=== PATIENT | male | born 1990 | race Caucasian/White ===

== ENCOUNTER 2021-03-27 03:10 | Emergency (ER) | payer BC, SELFPAY ==
[2021-03-27 03:15] VITALS: BP 134/82; PULSE 68; RESP 16; TEMP 35.9; O2SAT 100
[2021-03-27 03:21] VITALS: BP 134/76; PULSE 62; RESP 14; O2SAT 96
[2021-03-27 03:53] LABS: Add Urine Microscopic? NO; Appearance Urine Clear (Clear); Bilirubin Urine Negative (Negative); Blood Urine Negative (Negative); Color Urine Yellow (Yellow); Glucose Urine UA Negative (Negative); Ketones Urine Negative (Negative); Leukocyte Esterase Ur Negative LEU/UL (Negative); Nitrate Urine Negative (Negative); Protein Urine Negative (Negative); Specific Grav Ur 1.021 (1.001-1.035); Urobilinogen Urine Negative mg/dL (<2.0)
--- NOTE | 2021-03-27 04:01 | ED.SKABFB ---
HPI - Skin/Abscess/Foreign Bdy General Chief complaint: Skin/Abscess/Foreign Body Stated complaint: rash all over body Time Seen by Provider: 03/27/21 03:16 Source: patient Mode of arrival: ambulatory Limitations: no limitations History of Present Illness HPI narrative: This is a 30 year old male who presents for evaluation of a rash. He reports he has been having intermittent rash all over his body for 2 years. Most recently he developed rash in flexor surface of his right arm that has been present for 2 weeks. Over the past 2 days he has noticed red itching rash to his penis. He denies penile discharge, dysuria, lymph node swelling. He also denies new exposures. This rash is itching but denies pain or discharge. He has not been evaluated for this symptoms. He states he applied some over the counter hydrocortisone cream tonight. Related Data Home Medications Medication Instructions Recorded Confirmed omeprazole 20 mg PO DAILY 03/27/21 Allergies Allergy/AdvReac Type Severity Reaction Status Date / Time No Known Allergies Allergy Mild Verified 03/27/21 03:17 Review of Systems Review of Systems: All systems reviewed & are unremarkable except as noted in HPI and below PMFSH Past Medical History Medical History (Updated 03/28/21 @ 00:00 by Shirley Bass) Patient denies medical problems Social History Social History (Updated 03/27/21 @ 04:05 by Milka Jones MD) Smoking status: Never smoker Alcohol intake: current Gender identity (if verbalized by the patient): Male Sexual Orientation (if Verbalized by the Patient): Straight or Heterosexual Exam Const: General: no acute distress and alert Orientation/consciousness: patient oriented x3 Eyes: EOM: EOMs intact bilaterally Resp: Effort & Inspection: normal respiratory effort GI: GI Palp: Yes Soft to palpation and No Tenderness to palpation present (GI) : Penis: Yes circumcised Other: no inguinal lymphadenopathy. red papular rash to glans of penis, no swelling, not in clusters, no ulcerations. 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 Date: 03/27/21 Time: 04:08 Vital Signs Vital signs: Vital Signs Temperature 96.7 F L 03/27/21 03:15 Pulse Rate 68 03/27/21 03:15 Respiratory Rate 16 03/27/21 03:15 Blood Pressure 134/82 03/27/21 03:15 Pulse Oximetry 100 03/27/21 03:15 Temperature 96.7 F L 03/27/21 03:15 Pulse Rate 62 03/27/21 04:49 Respiratory Rate 16 03/27/21 04:49 Blood Pressure 148/73 H 03/27/21 04:49 Pulse Oximetry 98 03/27/21 04:49 MDM - Skin/Abscess/Foreign Bdy Lab Data Labs: Lab Results 03/27/21 03/27/21 Range/Units 03:44 04:29 Urine Color Yellow (Yellow) Urine Appearance Clear (Clear) Urine pH 5.0 (5.0-9.0) Ur Specific [place] 1.021 (1.001-1.035) Urine Protein Negative (Negative) mg/dL Urine Glucose (UA) Negative (Negative) mg/dL Urine Ketones Negative (Negative) mg/dL Ur Blood (Man) Negative (Negative) Urine Nitrate Negative (Negative) Urine Bilirubin Negative (Negative) Urine Urobilinogen Negative (<2.0) mg/dL Leukocyte Esterase Rfl Negative (Negative) [place]/UL C.trachomatis RNA (TMA) Pending N.gonorrhoeae RNA (TMA) Pending Discharge Plan Discharge Clinical Impression: Eczema, Lesion of penis Patient Disposition: Home, Self-Care Condition: Stable Instructions: Antibiotic Form, Eczema (ED) Additional Instructions: Today you were evaluated for a jessee
[2021-03-27] MEDS: FLUCONAZOLE 150 MG TABLET PO (04:30)
[2021-03-27] MEDS: HYDROCORTISONE 2.5% CREAM 30 GM TUBE 1 APPLIC TOPICAL (04:45)
[2021-03-27 04:49] VITALS: BP 148/73; PULSE 62; RESP 16; O2SAT 98
== END 2021-03-27 04:49 | disposition home or self-care (01) ==
PROVIDERS: Emergency Provider General Practice; PCP Family Medicine Adolescent Medicine
DX: L30.9 Dermatitis, unspecified (principal); N48.89 Other specified disorders of penis
CPT/HCPCS: 81003; 87491; 87591; 99283; A9270

== ENCOUNTER 2024-01-30 01:46 | Day surgery (SDC) | payer BC, SELFPAY ==
[2024-01-28 10:13] VITALS: BMI 34.4
--- NOTE | 2024-01-28 10:21 | PC.NURSE ---
Report to the Outpatient Waiting Room, entrance under the green pavilion located off [facility], at time _1300 on date _01/30/24_. Planned Procedure Time: ___1500_. Time changes happen often and if your time is changed the preop area will call you the afternoon before. - You and your visitor will be asked to self-screen and do not enter if you have any COVID symptoms. - A mask is optional within the hospital at this time. Patients may have clear liquids (water, carbonated beverages, clear teas, apple juice) until 3 hours prior to surgery with a maximum of 20 ounces. - No food from midnight until time of surgery - Infants may have breast milk until 4 hours before surgery, formula 6 hours prior to surgery. - Children will be allowed to drink immediately following surgery. If applicable, please bring a bottle or sippy cup to assist with drinking. Juice, water, soda, and popsicles are readily available. For infants on formula, please bring formula the day of surgery. Pacifiers are allowed. Take the following medications with a SIP of water the morning of surgery: NONE DO NOT STOP ANY OF YOUR OTHER PRESCRIPTION MEDICATIONS PRIOR TO SURGERY ?EXCEPT THE FOLLOWING Medications to discontinue per physician NONE Date to take last dose Please no make-up, nail greek, hairspray, perfume, deodorant, or body powder the day of surgery. No jewelry (including any body piercings) or valuables the day of surgery, leave them at home. Please take a shower or bath the night before, or the morning of, surgery with an antibacterial soap. Wear comfortable, loose fitting clothing. Children are encouraged to wear pajamas. - Jewelry must be removed prior to entering the operating room. Rings and piercings that are not removed may be cut off. - The hospital will not accept responsibility for valuables. - Please leave all valuables, including medications, at home the day of surgery. If you are going home after surgery, a licensed nascar driver must drive you home. - NO public transportation without another adult if you receive anesthesia. - We recommend that an adult stay with you for 24 hours following discharge. - We also recommend that you do not drive, make important decision, drink alcoholic beverages, or take any drugs that were not prescribed by your health care provider for at least 24 hours after your discharge time. For Pediatric surgeries, we recommend two adults accompany the child home. Follow any additional instructions given to you from your surgeon. If you or anyone in your household have experienced Covid symptoms in the past week, please notify your surgeon or the nurse liaison at the phone number below for possible testing. Telephone instructions given to _PATIENT____and asked if any additional questions and then verbalized understanding. Patient advised to call surgeon office or pre surgery nurse liaison [phone] if any additional questions.
[2024-01-30] VITALS (9 sets, daily range): BP systolic 98–146; BP diastolic 65–87; PULSE 58–73; RESP 14–22; TEMP 36.7–36.8; O2SAT 96–100
--- NOTE | 2024-01-30 08:59 | P.PNAN_ITS ---
Anes - Initial Pre Proc Eval Procedure: Operation Date: 01/30/24 15:00 Proposed Procedures p Bilateral Vasectomy - Dereje Calvillo MD Date/Time: 01/30/24 08:59 Surgeon: Dereje Calvillo MD Pre Op Diagnosis: male sterilization Patient Data Age: 33 Gender: M Height: 1.83 m Weight: 115 kg Allergies Allergy/AdvReac Type Severity Reaction Status Date / Time No Known Allergies Allergy Mild Verified 01/28/24 10:12 Home Medications Medication Instructions Recorded Confirmed Type omeprazole 20 mg tablet,delayed 20 mg PO DAILY 04/18/22 01/28/24 History release Patient hx anesthesia problems: none Family hx anesthesia problems: none Results Review: All pre-operative results and documents have been reviewed as part of the pre- operative evaluation. [facility] Past Medical History Medical History (Updated 01/30/24 @ 09:00 by Kyaw Sepulveda DO) GERD (gastroesophageal reflux disease) Surgical History Surgical History (Updated 04/18/22 @ 10:30 by Nica Pardo MA) History of release of tendon Hx of appendectomy (02/2020) Social History Social History (Updated 04/18/22 @ 10:32 by Nica Pardo MA) Smoking status: Former smoker Tobacco type: e-cigarettes/vaping and smokeless tobacco Smokeless tobacco user: chewing tobacco Smoking end date: 11/19/18 Additional smoking assessment comments: VAP DAILY, CHEW TOBACCO FOR 7 YEARS- DAILY FOR 1 HOUR NOW DOWN FROM ALL DAY Alcohol intake: current Drinks per week: 3 Alcohol use details: A 5th a week Substance use: never Substance use type: marijuana and crack/cocaine Other substance usage details: BLOW Last use: 2 DAYS FOR BLOW, SEVERAL MONTHS FOR MARIJUANA Living arrangements: with family Occupation/Education: occupation Gender identity (if verbalized by the patient): Male Sexual Orientation (if Verbalized by the Patient): Straight or Heterosexual Spiritual care concerns: No Agree to blood products: Yes Anes - Eval Final PreProcedure Day of Procedure 01/30/24 08:59 Patient weight: obese Heart: regular rate and rhythm Lungs: clear to auscultation Airway: Mallampati scale class II Neurological: alert and oriented Last oral intake: >/= 8 hours ASA classification: II Emergent: no Anesthetic plan: proceed Anesthesia type and monitoring: general GIVS and standard monitoring Results Review: All pre-operative results and documents have been reviewed as part of the pre- operative evaluation. Informed Consent: The patient's anesthetic plan and its attendant risks and benefits were discussed with the patient/family/POA. Questions were solicited and answers provided to the satisfaction of the patient/family/POA.
[2024-01-30] MEDS: LACTATED RINGERS 1,000 ML 30 ML IV CONT (14:00)
[2024-01-30] MEDS: ACETAMINOPHEN 500 MG TABLET 1000 MG PO (14:00)
--- NOTE | 2024-01-30 14:03 | WPDHPUPDATE1 ---
History and Physical Update Update Date/Time: 01/30/24 14:03 History and Physical has been reviewed, including an updated exam of the patient. There are NO changes in the patient's condition. Risks, benefits, and alternatives have been discussed and questions answered. Patient agrees to proceed with procedure.
[2024-01-30] MEDS: ceFAZolin 2 GM/D5W 50 ML 2 GM/50 ML BAG IVPB (14:17)
--- NOTE | 2024-01-30 14:48 | W.PM.PROC2 ---
Procedure Note - Detailed Date of Procedure 01/30/24 Pre-op Diagnosis male sterilization Post-op Diagnosis Same Procedure Performed Bilateral vasectomy Surgeon Dereje Calvillo MD Anesthesia General Description of Procedure Informed consent obtained. Patient taken the operating previous give preoperative IV antibiotics. He was prepped and draped normal sterile fashion. The right vas deferens and brought to midline. We then used a non scalpel technique to separate the skin over the vas deferens. A 2cm portion of the vas identified, excised stent the specimen. We then cauterized the ends. Chromic suture was placed at each a fascial interposition was then performed identical procedure the contralateral left side we inspected carefully and there was good hemostasis. There was some oozing from the midline skin separation and therefore a single 4-0 chromic horizontal mattress stent was placed. Patient tolerated procedure well. He was taken to recovery room in stable condition Pathology Yes Complications No immediate complications Condition Stable Disposition PACU
== END 2024-01-30 16:47 | disposition home or self-care (01) ==
PROVIDERS: PCP Family Medicine Adolescent Medicine; Visit Provider Urology
PROC: (CPT 55250; principal; 2024-01-30 15:00)
DX: Z30.2 Encounter for sterilization (principal); K21.9 Gastro-esophageal reflux disease without esophagitis; F12.90 Cannabis use, unspecified, uncomplicated; F14.90 Cocaine use, unspecified, uncomplicated; F17.290 Nicotine dependence, other tobacco product, uncomplicated; E66.9 Obesity, unspecified; Z68.34 Body mass index [BMI] 34.0-34.9, adult; Z98.890 Other specified postprocedural states
CPT/HCPCS: 55250; 88300; A9270; J0690; J2250; J2405; J2704; J3010; J7120